=== PATIENT | female | born 1980 | race Caucasian/White ===

== ENCOUNTER 2025-01-25 16:40 | Emergency (ER) | payer OTHER, SELFPAY ==
[2025-01-25 16:43] VITALS: BP 123/77; PULSE 94; RESP 18; TEMP 36.8; O2SAT 97
--- NOTE | 2025-01-25 17:42 | ED.SKABFB ---
HPI - Skin/Abscess/Foreign Bdy General Chief complaint: Skin/Abscess/Foreign Body Stated complaint: bumps under left arm Time Seen by Provider: 01/25/25 17:33 History of Present Illness HPI narrative: 44 y/o F with no PMHx presents to the ED for a rash to her left axilla x3 days. Patient states the rash is blistered. She describes it as a burning sensation with intermittent shooting pains. She states she intermittently gets rashes to her skin when she sweats but has never had anything like this before. She denies fevers, new lotions, creams or detergents. She also notes over the past couple days she has developed a red rash to the left chest wall. She states she did have chickenpox when she was a kid. Review of Systems Review of Systems: All systems reviewed & are unremarkable except as noted in HPI and below Exam Narrative: GENERAL: Well-appearing, well-nourished, and in no acute distress. HEAD: Normocephalic, atraumatic. EYES: EOMI. ENT: Nares clear, no rhinorrhea or epistaxis. Mucous membranes moist. NECK: Supple. CHEST: Clear to auscultation. No respiratory distress. HEART: Regular rate and rhythm. No murmur heard. Normal peripheral pulses. ABDOMEN: Soft, nontender, nondistended, normal active bowel sounds. EXTREMITIES: Normal range of motion. No edema. SKIN: Focal vesicular rash to the left axilla, intact vesicles. No surrounding erythema, warmth, no induration or fluctuation, no purulence. Erythematous macular rash with possible developing vesicles the left breast following the T1 distribution. NEURO: No focal deficits. Alert and oriented x3 Course Vital Signs Vital signs: Vital Signs Temperature 98.2 F 01/25/25 16:43 Pulse Rate 94 01/25/25 16:43 Respiratory Rate 18 01/25/25 16:43 Blood Pressure 123/77 01/25/25 16:43 Pulse Oximetry 97 01/25/25 16:43 Temperature 98.2 F 01/25/25 16:43 Pulse Rate 94 01/25/25 16:43 Respiratory Rate 18 01/25/25 16:43 Blood Pressure 123/77 01/25/25 16:43 Pulse Oximetry 97 01/25/25 16:43 MDM - Skin/Abscess/Foreign Bdy MDM Narrative Medical decision making narrative: 44-year-old female presents to the emergency department for a vesicular rash that started 3 days ago and a rash to her left anterior chest wall that started over the past 1-2 days. Patient describes the rash as stinging and burning with intermittent sharp pains. No new deodorants or topicals. No fevers. Vitals are stable. She is afebrile and nontoxic appearing. Exam is significant for a vesicular rash that follows the T1 dermatome consistent with herpes zoster. Patient will be started on Valtrex provided with naproxen for pain control. She is traveling from out of [facility] and leaving town this weekend, advised her to follow-up with PCP and Dermatology when she gets home. Discussed strict ED return precautions. She is agreeable with the plan verbalized understanding. Discharged in stable condition. Discharge Plan Discharge Clinical Impression: Herpes zoster Qualifiers: Herpes zoster complications: without complications Qualified Code(s): B02.9 - Zoster without complications Patient Disposition: Home Condition: Stable Instructions: Antibiotic Form, Shingles (ED) Additional Instructions: Your rash is consistent with shingles as discussed. Please take the antivirals as directed. Take naproxen as needed for pain. He can also use capsaicin cream [id number] or topical lidocaine for pain control. Please follow-up closely with primary care provider in dermatology back at home. Return to the emergency department if you develop a fever, worsening rash, surrounding redness or drainage, or other concerning symptoms. Patient Language: Indonesian Prescriptions: New valacyclovir 1 gram tablet 1,000 mg PO Q8H 7 Days Qty: 21 0RF naproxen 500 mg tablet 500 mg PO BID PRN (Reason: pain) Qty: 20 0RF Follow-up/Referrals: PHYSICIAN NOT ON STAFF,NONSTAFF [Non-Staff] -
[2025-01-25] MEDS: valACYclovir HCL 500 MG TABLET 1000 MG PO (18:05)
[2025-01-25 18:10] VITALS: BP 126/80; PULSE 86; RESP 16; TEMP 36.6; O2SAT 100
== END 2025-01-25 18:12 | disposition home or self-care (01) ==
PROVIDERS: Emergency Provider Physician Assistant
DX: B02.9 Zoster without complications (principal)
CPT/HCPCS: 99283; A9270